=== PATIENT | female | born 1945 | race Caucasian/White ===

== ENCOUNTER 2017-10-22 09:59 | Inpatient (IN) ==
[2017-10-22] MEDS ORDERED: ENOXAPARIN 100 MG/ML SYRINGE SUBCUT STA (10:22)
[2017-10-22] MEDS ORDERED: HEPARIN/NACL 0.9% 2 UNITS/ML 1,000 ML IV ONE (10:22)
[2017-10-22] MEDS ORDERED: ASPIRIN 325 MG TABLET PO STA (10:22)
[2017-10-22] MEDS ORDERED: fentaNYL 100 MCG/2 ML VIAL ONE (10:24)
[2017-10-22] MEDS ORDERED: MIDAZOLAM 2 MG/2 ML VIAL ONE (10:24)
[2017-10-22] MEDS ORDERED: LIDOCAINE 1% 20 ML VIAL ONE (10:24)
[2017-10-22] MEDS ORDERED: METOPROLOL TARTRATE 5 MG/5 ML VIAL IV ONE ×2 (10:25→10:28)
[2017-10-22] MEDS ORDERED: VERAPAMIL 5 MG/2 ML VIAL ONE (10:26)
[2017-10-22] MEDS ORDERED: NITROGLYCERIN DRIP 50 MG/250 ML BOTTLE IV ONE (10:26)
[2017-10-22] MEDS ORDERED: NITROGLYCERIN 2% OINT 1 INCH/GM PACK TOP ONE (10:27)
[2017-10-22] MEDS: NITROGLYCERIN 2% OINT 1 INCH/GM PACK TOP SCH ×2 (10:28→23:59)
[2017-10-22] MEDS ORDERED: HEPARIN/NACL 0.9% 2 UNITS/ML 500 ML IV ONE (10:30)
[2017-10-22 10:37] LABS: Basophils % 0.5 % (0.0-0.8); Eosinophils # 0.1 10*3/uL (0.0-0.87); Eosinophils % 1.4 % (0.00-10.9); Hematocrit 41.3 VOL% (35.7-47.0); Hemoglobin 14.3 GM/DL (12.0-16.0); Immature Granulocytes % 0.2 %; Immature Granulocytes Absolute 0.01 #; Lymphocytes # 1.7 10*3/uL (1.4-4.0); Lymphocytes % 30.7 % (21.3-54.2); Mean Corpuscular HGB Conc 34.6 GM/DL (32-36); Mean Corpuscular Hemoglobin 30 PG (27-34); Mean Corpuscular Volume 86.8 FL (87-102); Monocytes # 0.5 10*3/uL (0.11-0.8); Neutrophils # 3.3 10*3/uL (1.4-7.4); Neutrophils % 58.2 % (38.7-73.9); Platelet Count 255 T/CUMM (130-400); Red Blood Count 4.76 MC/CUMM (3.8-5.5); Red Cell Distribution Width 12.2 % (9.3-17.3); White Blood Count 5.7 T/CUMM (4-12)
[2017-10-22 10:58] LABS: Alanine Aminotransferase 29 U/L (13-56); Alkaline Phosphatase 161 U/L (45-117); Aspartate Amino Transferase 19 U/L (0-37); Bilirubin,Total < 0.39 MG/DL (0.2-1.0); Blood Urea Nitrogen 6 MG/DL (7-18); Calcium 9.1 MG/DL (8.5-10.1); Glucose 105 MG/DL (74-106); Osmolality,Calculated 280.1 MOS/KG (273-304); Potassium 3.4 MMOL/L (3.5-5.1); Sodium 142 MMOL/L (136-145); Total Protein 7.6 G/DL (6.4-8.3); Troponin I Only 0.019 NG/ML (0.00-0.045)
[2017-10-22] MEDS ORDERED: ZALEPLON 5 MG CAPSULE PO PRN (11:18)
[2017-10-22] MEDS ORDERED: MAGNESIUM SULF RIDER 4 GM in PREMIX 1 EACH IV PRN (11:18)
[2017-10-22] MEDS ORDERED: POTASSIUM CHLORIDE 20 MEQ TABLET PO PRN (11:18)
[2017-10-22] MEDS ORDERED: MAGNESIUM SULF RIDER 2 GM in PREMIX 1 EACH IV PRN (11:18)
[2017-10-22] MEDS ORDERED: ONDANSETRON 4 MG/2 ML VIAL IV PRN (11:18)
[2017-10-22] MEDS ORDERED: diphenhydrAMINE CAP 25 MG CAPSULE PO PRN (11:18)
[2017-10-22] MEDS ORDERED: DOCUSATE SODIUM 100 MG CAPSULE PO PRN (11:18)
[2017-10-22 11:42] LABS: PT Patient Result 10.4 SECS; Partial Thromboplastin Time 27.1 SECS (0-40)
[2017-10-22] MEDS: HEPARIN DRIP 25,000 UNITS/500 ML PREMIX IV SCH (12:28)
[2017-10-22] MEDS ORDERED: SODIUM CHLORIDE 0.9% 1,000 ML IV SCH (13:00)
[2017-10-22 13:02] LABS: Alanine Aminotransferase 26 U/L (13-56); Alkaline Phosphatase 160 U/L (45-117); Aspartate Amino Transferase 20 U/L (0-37); Bilirubin,Total < 0.39 MG/DL (0.2-1.0); Blood Urea Nitrogen 6 MG/DL (7-18); Calcium 8.6 MG/DL (8.5-10.1); Glucose 118 MG/DL (74-106); Osmolality,Calculated 279.3 MOS/KG (273-304); Potassium 4.1 MMOL/L (3.5-5.1); Sodium 141 MMOL/L (136-145); Total Protein 7.4 G/DL (6.4-8.3)
[2017-10-22] MEDS: PANTOPRAZOLE 40 MG TABLET PO SCH (13:25)
[2017-10-22 15:56] LABS: Apearance,Urine CLEAR (Clear); Bilirubin,Urine Negative (Negative); Blood, Urine Small mg/dL (Negative); Glucose,Urine (UA) Negative (Negative); Ketones,Urine Negative (Negative); Mucus,Urine Occasional /LPF (Occasional); Nitrite,Urine Negative (Negative); Protein,Urine Negative; RBC,Urine 1 /HPF (0-4); Urine Color Straw (Yellow); Urine Specific Gravity 1.019 (1.001-1.035); Urine Urobilinogen < 2.0 EU/DL (0.2-1.0); WBC,Urine <1 /HPF (0-6)
[2017-10-22] MEDS: CHLORHEXIDINE 4% SOLN 118 ML BOTTLE TOP SCH ×2 (16:00→23:05)
[2017-10-22] MEDS ORDERED: ROSUVASTATIN 20 MG TABLET PO SCH (21:00)
[2017-10-22] MEDS: METOPROLOL TARTRATE 25 MG TABLET PO SCH (21:06)
[2017-10-22] MEDS: CHLORHEXIDINE 0.12% ORAL RINSE 60 ML BOTTLE SWISH/SPIT SCH (21:10)
[2017-10-22] MEDS ORDERED: SIMETHICONE CHEW 80 MG TABLET PO PRN (23:42)
[2017-10-23 02:51] LABS: Alanine Aminotransferase 27 U/L (13-56); Albumin 2.8 G/DL (3.4-5.0); Alkaline Phosphatase 145 U/L (45-117); Aspartate Amino Transferase 23 U/L (0-37); Bilirubin,Total < 0.39 MG/DL (0.2-1.0); Blood Urea Nitrogen 8 MG/DL (7-18); Calcium 8.5 MG/DL (8.5-10.1); Cholesterol 256 MG/DL (50-200); Glucose 117 MG/DL (74-106); HDL Cholesterol 84 MG/DL (40-60); Osmolality,Calculated 275.5 MOS/KG (273-304); Potassium 4.1 MMOL/L (3.5-5.1); Risk Ratio 3.05; Sodium 139 MMOL/L (136-145); Total Protein 6.7 G/DL (6.4-8.3); Triglycerides 61 MG/DL (2-150); VLDL CHOLESTEROL 12.2 MG/DL
[2017-10-23] MEDS: CHLORHEXIDINE 4% SOLN 118 ML BOTTLE TOP SCH ×2 (05:00→10:50)
[2017-10-23 05:14] LABS: Basophils % 0.4 % (0.0-0.8); Eosinophils % 0.4 % (0.00-10.9); Hematocrit 41.6 VOL% (35.7-47.0); Hemoglobin 13.1 GM/DL (12.0-16.0); Immature Granulocytes % 0.2 %; Immature Granulocytes Absolute 0.01 #; Lymphocytes # 1.3 10*3/uL (1.4-4.0); Lymphocytes % 23.7 % (21.3-54.2); Mean Corpuscular HGB Conc 31.5 GM/DL (32-36); Mean Corpuscular Hemoglobin 30 PG (27-34); Mean Corpuscular Volume 95.4 FL (87-102); Mean Platelet Volume 10.2 FL (9.6-12.0); Monocytes # 0.5 10*3/uL (0.11-0.8); Monocytes % 8.7 % (1.7-12.7); Neutrophils # 3.5 10*3/uL (1.4-7.4); Neutrophils % 66.6 % (38.7-73.9); Platelet Count 180 T/CUMM (130-400); Red Blood Count 4.36 MC/CUMM (3.8-5.5); Red Cell Distribution Width 12.6 % (9.3-17.3); White Blood Count 5.3 T/CUMM (4-12)
[2017-10-23] MEDS ORDERED: PAPAVERINE 60 MG/2 ML VIAL ONE (05:20)
[2017-10-23] MEDS ORDERED: TISSUE ADHESIVE 1 EACH APPLICATOR TOP ONE (05:20)
[2017-10-23] MEDS ORDERED: VANCOMYCIN 1,000 MG VIAL ONE (05:20)
[2017-10-23] MEDS ORDERED: MIDAZOLAM 10 MG/2 ML VIAL ONE (05:23)
[2017-10-23] MEDS ORDERED: TRANEXAMIC ACID 1,000 MG/10 ML VIAL ONE (05:23)
[2017-10-23] MEDS ORDERED: SUFentanil 250 MCG/5 ML AMP ONE (05:23)
[2017-10-23] MEDS ORDERED: LORazepam 1 MG TABLET PO ONE (06:00)
[2017-10-23] MEDS ORDERED: CEFUROXIME INJ 1,500 MG in SYRINGE 1 EACH IV ONE (06:00)
[2017-10-23] MEDS ORDERED: PANTOPRAZOLE 40 MG TABLET PO ONE (06:00)
[2017-10-23] MEDS: METOPROLOL TARTRATE 25 MG TABLET PO SCH ×2 (06:02→10:51)
[2017-10-23] MEDS ORDERED: NITROGLYCERIN SL 0.4 MG TABLET SL ONE ×3 (06:41→06:46)
[2017-10-23] MEDS: CHLORHEXIDINE 0.12% ORAL RINSE 60 ML BOTTLE SWISH/SPIT SCH ×3 (06:45→20:25)
[2017-10-23] MEDS: NITROGLYCERIN 2% OINT 1 INCH/GM PACK TOP SCH ×2 (06:59→10:52)
[2017-10-23 07:48] LABS: ABG Base Excess -0.7 MMOL/L (-2.5-2.5); ABG HCO3 23.9 MMOL/L (20-26); ABG Oxygen Saturation 99.8 % (95-100); ABG PCO2 36.3 MM HG (35-48); ABG PH 7.418 (7.35-7.45); ABG TCO2 20.8 MMOL/L (23-27); Glucose Heart Surgery 107 MG/DL (74-106); Hematocrit Heart Surgery 35.5 PERCENT (37-47); Hemoglobin Heart Surgery 11.5 G/DL (12.0-16.0); Ionized Calcium Arterial 1.16 MMOL/L (1.21-1.46); PCO2 Patient Temp Arterial 36.3 MMHG; PH Patient Temp Arterial 7.418; Patient Temperature 37 CELCIUS; Potassium Heart/CVR 3.2 MMOL/L (3.5-5.1); Sodium Heart/CVR 142 MMOL/L (135-145)
[2017-10-23] MEDS ORDERED: HEPARIN/NACL 0.9% 2 UNITS/ML 500 ML IV ONE (09:37)
[2017-10-23 09:43] LABS: PCO2 Patient Temp Venous 28.9 MM HG; PH Patient Temp Venous 7.514; PO2 Patient Temp Venous 37.4 MM HG; Potassium Heart/CVR 3.6 MMOL/L (3.5-5.1); VBG Base Excess 0.7 MEQ/L (0-4); VBG HCO3 24.9 MEQ/L (24-28); VBG Oxygen Saturation 84.3 %; VBG PCO2 31.8 MMHG (41-51); VBG PH 7.483
[2017-10-23 10:12] LABS: Hematocrit Heart Surgery 23.1 PERCENT (37-47); Hemoglobin Heart Surgery 7.4 G/DL (12.0-16.0); PCO2 Patient Temp Venous 29.7 MM HG; PH Patient Temp Venous 7.54; PO2 Patient Temp Venous 43.3 MM HG; Potassium Heart/CVR 3.6 MMOL/L (3.5-5.1); VBG Base Excess 3.2 MEQ/L (0-4); VBG HCO3 27.2 MEQ/L (24-28); VBG PCO2 32.8 MMHG (41-51); VBG PH 7.51; VBG PO2 49.6 MMHG (17-40)
[2017-10-23 10:34] LABS: Hematocrit Heart Surgery 25.3 PERCENT (37-47); Hemoglobin Heart Surgery 8.1 G/DL (12.0-16.0); PCO2 Patient Temp Venous 31.8 MM HG; PH Patient Temp Venous 7.489; PO2 Patient Temp Venous 35.1 MM HG; Potassium Heart/CVR 3.8 MMOL/L (3.5-5.1); VBG Base Excess 1.2 MEQ/L (0-4); VBG HCO3 25.3 MEQ/L (24-28); VBG Oxygen Saturation 80.8 %; VBG PH 7.459; VBG PO2 40.3 MMHG (17-40)
[2017-10-23] MEDS: PANTOPRAZOLE 40 MG TABLET PO SCH (10:51)
[2017-10-23 11:25] LABS: ABG Base Excess -1.2 MMOL/L (-2.5-2.5); ABG HCO3 23.4 MMOL/L (20-26); ABG Oxygen Saturation 97.5 % (95-100); ABG PCO2 40.8 MM HG (35-48); ABG PH 7.376 (7.35-7.45); ABG PO2 94.3 MM HG (80-95); Glucose Heart Surgery 220 MG/DL (74-106); Hematocrit Heart Surgery 28.8 PERCENT (37-47); Hemoglobin Heart Surgery 9.3 G/DL (12.0-16.0); Ionized Calcium Arterial 1.18 MMOL/L (1.21-1.46); PCO2 Patient Temp Arterial 40.8 MMHG; PH Patient Temp Arterial 7.376; PO2 Patient Temp Arterial 94.3 MM HG; Patient Temperature 37 CELCIUS; Sodium Heart/CVR 138 MMOL/L (135-145)
[2017-10-23] MEDS ORDERED: PROTAMINE SULFATE 250 MG/25 ML VIAL IV ONE ×2 (11:37→12:22)
[2017-10-23] MEDS ORDERED: MAGNESIUM SULFATE 1 GM/2 ML VIAL ONE (11:37)
[2017-10-23] MEDS ORDERED: LIDOCAINE 1% 5 ML VIAL ONE (11:37)
[2017-10-23] MEDS ORDERED: DEXTROSE 5% KCL 20 MEQ 40 MEQ/2,000 ML BAG IV ONE (11:37)
[2017-10-23] MEDS ORDERED: SODIUM BICARBONATE 50 MEQ/50 ML SYRINGE IV ONE (11:37)
[2017-10-23] MEDS ORDERED: FUROSEMIDE 20 MG/2 ML VIAL ONE (11:38)
[2017-10-23] MEDS ORDERED: ALBUMIN 5% 12.5 GM/250 ML VIAL IV ONE ×2 (11:38→12:46)
[2017-10-23] MEDS ORDERED: methylPREDNISolone SOD SUC 1,000 MG/8 ML VIAL ONE (11:38)
[2017-10-23] MEDS ORDERED: PROTAMINE SULFATE 50 MG/5 ML VIAL IV ONE (11:38)
[2017-10-23] MEDS ORDERED: HEPARIN 10,000 UNIT/10 ML VIAL ONE (11:38)
[2017-10-23] MEDS ORDERED: MANNITOL 12.5 GM/50 ML VIAL IV ONE (11:38)
[2017-10-23] MEDS ORDERED: PHENYLEPHRINE DRIP 40 MG/250 ML PREMIX IV ONE (11:49)
[2017-10-23] MEDS ORDERED: NITROPRUSSIDE 50 MG/2 ML VIAL ONE (12:13)
[2017-10-23] MEDS ORDERED: THROMBIN TOPICAL (RECOMBINANT) 5,000 UNIT VIAL TOP ONE (12:19)
[2017-10-23] MEDS ORDERED: METOPROLOL TARTRATE 5 MG/5 ML VIAL IV ONE ×3 (12:20→13:29)
[2017-10-23] MEDS ORDERED: SEVOFLURANE 1 UNIT/15 MINUTE INH ONE (12:22)
[2017-10-23] MEDS ORDERED: ePHEDrine 50 MG/ML AMP ONE (12:22)
[2017-10-23] MEDS ORDERED: VECURONIUM 10 MG VIAL IV ONE (12:22)
[2017-10-23] MEDS ORDERED: CALCIUM CHLORIDE 1,000 MG/10 ML VIAL IV ONE (12:22)
[2017-10-23] MEDS ORDERED: PHENYLEPHRINE 10 MG/1 ML VIAL IV ONE (12:23)
[2017-10-23] MEDS ORDERED: LACTATED RINGERS 1,000 ML IV ONE (12:23)
[2017-10-23] MEDS ORDERED: ETOMIDATE 40 MG/20 ML VIAL IV ONE (12:23)
[2017-10-23] MEDS ORDERED: SODIUM CHLORIDE 0.9% 1,000 ML IV ONE (12:23)
[2017-10-23] MEDS ORDERED: MIDAZOLAM 2 MG/2 ML VIAL IV PRN (12:38)
[2017-10-23] MEDS ORDERED: SODIUM CHLORIDE 0.9% 250 ML IV PRN (12:38)
[2017-10-23] MEDS ORDERED: CHLORHEXIDINE 4% SOLN 118 ML BOTTLE TOP PRN (12:38)
[2017-10-23] MEDS ORDERED: MORPHINE 10 MG/1 ML VIAL IV PRN (12:38)
[2017-10-23] MEDS ORDERED: MAGNESIUM SULF RIDER 4 GM in PREMIX 1 EACH IV SCH (12:38)
[2017-10-23] MEDS ORDERED: INSULIN REGULAR 100 UNIT/ML IV PRN (12:38)
[2017-10-23] MEDS ORDERED: DEXTROSE 50% 25 GM/50 ML VIAL IV PRN ×2 (12:38)
[2017-10-23] MEDS ORDERED: ACETAMINOPHEN 650 MG SUPP RECTAL PRN (12:38)
[2017-10-23] MEDS ORDERED: CALCIUM CHLORIDE 1,000 MG/10 ML SYRINGE IV PRN (12:38)
[2017-10-23] MEDS ORDERED: POTASSIUM CHLORIDE RIDER 10 MEQ in PREMIX 1 EACH IV PRN (12:38)
[2017-10-23] MEDS ORDERED: ONDANSETRON 4 MG/2 ML VIAL IV PRN (12:38)
[2017-10-23 12:57] LABS: ABG Base Excess -0.6 MMOL/L (-2.5-2.5); ABG Oxygen Saturation 98.9 % (95-100); ABG PCO2 35.9 MM HG (35-48); ABG PH 7.423 (7.35-7.45); ABG TCO2 20.9 MMOL/L (23-27); Glucose Heart Surgery 141 MG/DL (74-106); Hematocrit Heart Surgery 34.9 PERCENT (37-47); Hemoglobin Heart Surgery 11.3 G/DL (12.0-16.0); Potassium Heart/CVR 3.1 MMOL/L (3.5-5.1)
[2017-10-23] MEDS ORDERED: NITROPRUSSIDE 100 MG in DEXTROSE 5% 246 ML IV PRN (13:10)
[2017-10-23] MEDS: SODIUM CHLORIDE 0.45% 1,000 ML IV SCH ×2 (13:14)
[2017-10-23] MEDS: ALBUMIN 5% 12.5 GM in PREMIX 1 EACH IV PRN ×2 (13:15→13:45)
[2017-10-23 13:16] LABS: INR 1.1; PT Patient Result 11.9 SECS; Partial Thromboplastin Time 28.2 SECS (0-40)
[2017-10-23 13:17] LABS: Blood Urea Nitrogen 7 MG/DL (7-18); Calcium 7.7 MG/DL (8.5-10.1); Glucose 146 MG/DL (74-106); Osmolality,Calculated 281.3 MOS/KG (273-304); Potassium 3.3 MMOL/L (3.5-5.1); Sodium 141 MMOL/L (136-145)
[2017-10-23 13:20] LABS: Lactic Acid 2.3 MMOL/L (0.4-2.0)
[2017-10-23] MEDS: POTASSIUM CHLORIDE RIDER 20 MEQ in PREMIX 1 EACH IV PRN ×4 (13:26→20:57)
[2017-10-23] MEDS ORDERED: ASPIRIN 325 MG TABLET PO ONE (16:00)
[2017-10-23 16:09] LABS: ABG Base Excess 0.5 MMOL/L (-2.5-2.5); ABG HCO3 25.1 MMOL/L (20-26); ABG PCO2 39.9 MM HG (35-48); ABG PH 7.416 (7.35-7.45); ABG PO2 85.2 MM HG (80-95); ABG TCO2 26.3 MMOL/L (23-27); Glucose Heart Surgery 140 MG/DL (74-106); Hemoglobin Heart Surgery 10.4 G/DL (12.0-16.0); Potassium Heart/CVR 3.3 MMOL/L (3.5-5.1)
[2017-10-23 20:05] LABS: ABG Base Excess 0.9 MMOL/L (-2.5-2.5); ABG HCO3 25.6 MMOL/L (20-26); ABG Oxygen Saturation 95.2 % (95-100); ABG PCO2 40.9 MM HG (35-48); ABG PH 7.414 (7.35-7.45); ABG TCO2 26.8 MMOL/L (23-27); Glucose Heart Surgery 150 MG/DL (74-106); Hemoglobin Heart Surgery 10.4 G/DL (12.0-16.0); Potassium Heart/CVR 3.2 MMOL/L (3.5-5.1)
[2017-10-23] MEDS: CEFUROXIME INJ 1,500 MG in SYRINGE 1 EACH IV SCH (20:10)
[2017-10-23] MEDS: PHENobarbital 30 MG TABLET PO SCH (20:47)
[2017-10-23] MEDS: PHENYTOIN ER 100 MG CAPSULE PO SCH (20:48)
[2017-10-23] MEDS ORDERED: ACETAMINOPHEN 325 MG TABLET PO PRN (22:12)
[2017-10-24] MEDS: NITROGLYCERIN 2% OINT 1 INCH/GM PACK TOP SCH (00:12)
[2017-10-24] MEDS: HEPARIN DRIP 25,000 UNITS/500 ML PREMIX IV SCH (00:13)
[2017-10-24 00:25] LABS: Apearance,Urine CLEAR (Clear); Bilirubin,Urine Negative (Negative); Blood, Urine Moderate mg/dL (Negative); Glucose,Urine (UA) Negative (Negative); Ketones,Urine 80 mg/dL (Negative); Mucus,Urine Occasional /LPF (Occasional); Nitrite,Urine Negative (Negative); Protein,Urine Negative; RBC,Urine 15 /HPF (0-4); Urine Color Yellow (Yellow); Urine Specific Gravity 1.015 (1.001-1.035); Urine Urobilinogen < 2.0 EU/DL (0.2-1.0); WBC,Urine 2 /HPF (0-6)
[2017-10-24 03:19] LABS: Basophils % 0.1 % (0.0-0.8); Hematocrit 27.9 VOL% (35.7-47.0); Immature Granulocytes % 0.4 %; Immature Granulocytes Absolute 0.03 #; Lymphocytes # 0.6 10*3/uL (1.4-4.0); Lymphocytes % 8.3 % (21.3-54.2); Mean Corpuscular HGB Conc 34.4 GM/DL (32-36); Mean Corpuscular Hemoglobin 31 PG (27-34); Mean Corpuscular Volume 89.7 FL (87-102); Mean Platelet Volume 10.2 FL (9.6-12.0); Monocytes # 0.7 10*3/uL (0.11-0.8); Monocytes % 9.4 % (1.7-12.7); Neutrophils # 5.9 10*3/uL (1.4-7.4); Neutrophils % 81.8 % (38.7-73.9); Platelet Count 157 T/CUMM (130-400); Red Blood Count 3.11 MC/CUMM (3.8-5.5); Red Cell Distribution Width 13.3 % (9.3-17.3); White Blood Count 7.2 T/CUMM (4-12)
[2017-10-24 03:20] LABS: Hemoglobin 9.6 GM/DL (12.0-16.0)
[2017-10-24] MEDS: MORPHINE 4 MG/1 ML VIAL IV PRN ×2 (03:38→12:17)
[2017-10-24] MEDS: SODIUM CHLORIDE 0.45% 1,000 ML IV SCH ×2 (03:55→08:46)
[2017-10-24 04:28] LABS: Calcium 7.5 MG/DL (8.5-10.1); Osmolality,Calculated 279.3 MOS/KG (273-304); Potassium 3.9 MMOL/L (3.5-5.1)
[2017-10-24] MEDS: POTASSIUM CHLORIDE RIDER 20 MEQ in PREMIX 1 EACH IV PRN (04:47)
[2017-10-24] MEDS: MAGNESIUM SULF RIDER 2 GM in PREMIX 1 EACH IV PRN ×2 (04:49→06:30)
[2017-10-24] MEDS: CEFUROXIME INJ 1,500 MG in SYRINGE 1 EACH IV SCH ×2 (08:15→21:14)
[2017-10-24] MEDS: PANTOPRAZOLE 40 MG VIAL IV SCH (08:18)
[2017-10-24] MEDS: PHENYTOIN ER 100 MG CAPSULE PO SCH ×3 (08:21→21:13)
[2017-10-24] MEDS: ASPIRIN EC 325 MG TABLET PO SCH (08:21)
[2017-10-24] MEDS: PHENobarbital 30 MG TABLET PO SCH ×3 (08:21→21:14)
[2017-10-24] MEDS: FUROSEMIDE 40 MG TABLET PO SCH (08:21)
[2017-10-24] MEDS: CHLORHEXIDINE 0.12% ORAL RINSE 60 ML BOTTLE SWISH/SPIT SCH ×2 (08:22→21:14)
[2017-10-24] MEDS: INSULIN REGULAR 100 UNIT/ML SUBCUT SCH ×4 (08:24→20:45)
[2017-10-24] MEDS: METOPROLOL TARTRATE 25 MG TABLET PO SCH ×2 (09:05→21:13)
[2017-10-24] MEDS ORDERED: ALBUTEROL 2.5 MG/3 ML NEB RESP TX PRN (10:28)
[2017-10-24] MEDS: ATORVASTATIN 40 MG TABLET PO SCH (21:13)
[2017-10-25] MEDS: INSULIN REGULAR 100 UNIT/ML SUBCUT SCH ×6 (01:11→22:57)
[2017-10-25 06:04] LABS: Basophils % 0.2 % (0.0-0.8); Eosinophils % 0.1 % (0.00-10.9); Hematocrit 27.5 VOL% (35.7-47.0); Hemoglobin 9.9 GM/DL (12.0-16.0); Immature Granulocytes % 0.5 %; Immature Granulocytes Absolute 0.04 #; Lymphocytes # 0.7 10*3/uL (1.4-4.0); Lymphocytes % 7.8 % (21.3-54.2); Mean Corpuscular Hemoglobin 31 PG (27-34); Mean Corpuscular Volume 85.9 FL (87-102); Mean Platelet Volume 10.5 FL (9.6-12.0); Monocytes # 0.8 10*3/uL (0.11-0.8); Monocytes % 9.3 % (1.7-12.7); Neutrophils # 7.1 10*3/uL (1.4-7.4); Neutrophils % 82.1 % (38.7-73.9); Platelet Count 149 T/CUMM (130-400); Red Cell Distribution Width 13.2 % (9.3-17.3); White Blood Count 8.6 T/CUMM (4-12)
[2017-10-25 06:38] LABS: Calcium 7.6 MG/DL (8.5-10.1); Calcium 7.7 MG/DL (8.5-10.1); Osmolality,Calculated 270.8 MOS/KG (273-304); Potassium 3.1 MMOL/L (3.5-5.1)
[2017-10-25 06:41] LABS: Hypochromasia Slight; Lymphocytes 9 % (20-55); Platelet Estimate Normal; Segmented Neutrophils 83 % (50-85); Total Cells Counted 100
[2017-10-25] MEDS ORDERED: FUROSEMIDE 40 MG/4 ML VIAL IV ONE (08:52)
[2017-10-25] MEDS: POTASSIUM CHLORIDE RIDER 20 MEQ in PREMIX 1 EACH IV PRN ×2 (09:21→10:36)
[2017-10-25] MEDS: PANTOPRAZOLE 40 MG VIAL IV SCH (09:22)
[2017-10-25] MEDS: ASPIRIN EC 325 MG TABLET PO SCH (09:24)
[2017-10-25] MEDS: METOPROLOL TARTRATE 25 MG TABLET PO SCH ×2 (09:24→21:51)
[2017-10-25] MEDS: FUROSEMIDE 40 MG TABLET PO SCH (09:25)
[2017-10-25] MEDS: PHENobarbital 30 MG TABLET PO SCH ×3 (09:25→21:51)
[2017-10-25] MEDS: PHENYTOIN ER 100 MG CAPSULE PO SCH ×3 (09:25→21:50)
[2017-10-25] MEDS: CHLORHEXIDINE 0.12% ORAL RINSE 60 ML BOTTLE SWISH/SPIT SCH ×2 (09:25→21:51)
[2017-10-25] MEDS: MAGNESIUM SULF RIDER 2 GM in PREMIX 1 EACH IV PRN (11:35)
[2017-10-25] MEDS ORDERED: POTASSIUM CHLORIDE 20 MEQ TABLET PO SCH (13:30)
[2017-10-25] MEDS: ASCORBIC ACID 500 MG TABLET PO SCH ×2 (14:52→21:51)
[2017-10-25] MEDS: ATORVASTATIN 40 MG TABLET PO SCH (21:50)
[2017-10-25] MEDS ORDERED: POTASSIUM CHLORIDE RIDER IV ONE (22:00)
[2017-10-26] MEDS: INSULIN REGULAR 100 UNIT/ML SUBCUT SCH ×6 (02:48→20:43)
[2017-10-26 05:49] LABS: Basophils % 0.4 % (0.0-0.8); Eosinophils # 0.1 10*3/uL (0.0-0.87); Eosinophils % 0.9 % (0.00-10.9); Hematocrit 30.7 VOL% (35.7-47.0); Hemoglobin 10.6 GM/DL (12.0-16.0); Immature Granulocytes % 0.6 %; Immature Granulocytes Absolute 0.05 #; Lymphocytes # 1.2 10*3/uL (1.4-4.0); Lymphocytes % 14.1 % (21.3-54.2); Mean Corpuscular HGB Conc 34.5 GM/DL (32-36); Mean Corpuscular Hemoglobin 30 PG (27-34); Mean Corpuscular Volume 87.7 FL (87-102); Mean Platelet Volume 10.6 FL (9.6-12.0); Monocytes # 0.8 10*3/uL (0.11-0.8); Monocytes % 9.7 % (1.7-12.7); Neutrophils # 6.1 10*3/uL (1.4-7.4); Neutrophils % 74.3 % (38.7-73.9); Platelet Count 179 T/CUMM (130-400); Red Cell Distribution Width 13.2 % (9.3-17.3); White Blood Count 8.2 T/CUMM (4-12)
[2017-10-26 06:19] LABS: Osmolality,Calculated 272.8 MOS/KG (273-304); Potassium 4.4 MMOL/L (3.5-5.1)
[2017-10-26] MEDS: ASCORBIC ACID 500 MG TABLET PO SCH ×2 (08:27→20:37)
[2017-10-26] MEDS: PHENYTOIN ER 100 MG CAPSULE PO SCH ×3 (08:28→20:39)
[2017-10-26] MEDS: METOPROLOL TARTRATE 25 MG TABLET PO SCH ×2 (08:28→20:38)
[2017-10-26] MEDS: FUROSEMIDE 40 MG TABLET PO SCH (08:28)
[2017-10-26] MEDS: PANTOPRAZOLE 40 MG VIAL IV SCH (08:28)
[2017-10-26] MEDS: ASPIRIN EC 325 MG TABLET PO SCH (08:28)
[2017-10-26] MEDS: POTASSIUM CHLORIDE 20 MEQ TABLET PO SCH ×2 (08:30→20:38)
[2017-10-26] MEDS ORDERED: BISACODYL 5 MG TABLET PO PRN (09:24)
[2017-10-26] MEDS ORDERED: DOCUSATE SODIUM 100 MG CAPSULE PO PRN (09:25)
[2017-10-26] MEDS: CHLORHEXIDINE 0.12% ORAL RINSE 60 ML BOTTLE SWISH/SPIT SCH ×2 (09:35→21:22)
[2017-10-26] MEDS: PHENobarbital 30 MG TABLET PO SCH ×3 (09:35→20:39)
[2017-10-26] MEDS: ATORVASTATIN 40 MG TABLET PO SCH (20:39)
[2017-10-27] MEDS: INSULIN REGULAR 100 UNIT/ML SUBCUT SCH ×6 (01:25→20:30)
[2017-10-27 06:12] LABS: Basophils # 0.1 10*3/uL (0.0-0.2); Basophils % 0.7 % (0.0-0.8); Eosinophils # 0.3 10*3/uL (0.0-0.87); Eosinophils % 3.6 % (0.00-10.9); Hematocrit 32.1 VOL% (35.7-47.0); Immature Granulocytes % 0.6 %; Immature Granulocytes Absolute 0.05 #; Lymphocytes # 1.7 10*3/uL (1.4-4.0); Lymphocytes % 20.8 % (21.3-54.2); Mean Corpuscular HGB Conc 34.3 GM/DL (32-36); Mean Corpuscular Hemoglobin 31 PG (27-34); Mean Corpuscular Volume 89.7 FL (87-102); Mean Platelet Volume 10.3 FL (9.6-12.0); Monocytes # 0.8 10*3/uL (0.11-0.8); Monocytes % 9.9 % (1.7-12.7); Neutrophils # 5.4 10*3/uL (1.4-7.4); Neutrophils % 64.4 % (38.7-73.9); Platelet Count 280 T/CUMM (130-400); Red Blood Count 3.58 MC/CUMM (3.8-5.5); Red Cell Distribution Width 13.3 % (9.3-17.3); White Blood Count 8.4 T/CUMM (4-12)
[2017-10-27 06:48] LABS: Calcium 8.3 MG/DL (8.5-10.1); Osmolality,Calculated 274.7 MOS/KG (273-304); Potassium 4.2 MMOL/L (3.5-5.1)
[2017-10-27] MEDS ORDERED: DIGOXIN 0.5 MG/2 ML AMP IV ONE (08:03)
[2017-10-27] MEDS: ASCORBIC ACID 500 MG TABLET PO SCH ×2 (09:41→20:50)
[2017-10-27] MEDS: FUROSEMIDE 40 MG TABLET PO SCH (09:41)
[2017-10-27] MEDS: ASPIRIN EC 325 MG TABLET PO SCH (09:41)
[2017-10-27] MEDS: PHENobarbital 30 MG TABLET PO SCH ×3 (09:41→20:50)
[2017-10-27] MEDS: POTASSIUM CHLORIDE 20 MEQ TABLET PO SCH ×2 (09:41→20:50)
[2017-10-27] MEDS: METOPROLOL TARTRATE 25 MG TABLET PO SCH ×2 (09:41→20:50)
[2017-10-27] MEDS: PHENYTOIN ER 100 MG CAPSULE PO SCH ×3 (09:41→20:50)
[2017-10-27] MEDS: CHLORHEXIDINE 0.12% ORAL RINSE 60 ML BOTTLE SWISH/SPIT SCH ×2 (09:44→20:51)
[2017-10-27] MEDS: PANTOPRAZOLE 40 MG VIAL IV SCH (09:44)
[2017-10-27] MEDS: ATORVASTATIN 40 MG TABLET PO SCH (20:50)
[2017-10-28] MEDS: INSULIN REGULAR 100 UNIT/ML SUBCUT SCH ×6 (03:17→23:58)
[2017-10-28 04:59] LABS: Basophils # 0.1 10*3/uL (0.0-0.2); Basophils % 0.8 % (0.0-0.8); Eosinophils # 0.3 10*3/uL (0.0-0.87); Hematocrit 28.6 VOL% (35.7-47.0); Hemoglobin 10.2 GM/DL (12.0-16.0); Immature Granulocytes % 0.5 %; Immature Granulocytes Absolute 0.03 #; Lymphocytes # 1.4 10*3/uL (1.4-4.0); Lymphocytes % 21.8 % (21.3-54.2); Mean Corpuscular HGB Conc 35.7 GM/DL (32-36); Mean Corpuscular Hemoglobin 31 PG (27-34); Mean Corpuscular Volume 87.7 FL (87-102); Mean Platelet Volume 9.9 FL (9.6-12.0); Monocytes # 0.6 10*3/uL (0.11-0.8); Monocytes % 9.5 % (1.7-12.7); Neutrophils # 4.1 10*3/uL (1.4-7.4); Neutrophils % 62.4 % (38.7-73.9); Platelet Count 262 T/CUMM (130-400); Red Blood Count 3.26 MC/CUMM (3.8-5.5); Red Cell Distribution Width 13.4 % (9.3-17.3); White Blood Count 6.6 T/CUMM (4-12)
[2017-10-28 05:26] LABS: Calcium 8.2 MG/DL (8.5-10.1); Osmolality,Calculated 271.8 MOS/KG (273-304)
[2017-10-28] MEDS: ASPIRIN EC 325 MG TABLET PO SCH (09:39)
[2017-10-28] MEDS: METOPROLOL TARTRATE 25 MG TABLET PO SCH (09:39)
[2017-10-28] MEDS: FUROSEMIDE 40 MG TABLET PO SCH (09:39)
[2017-10-28] MEDS: PHENYTOIN ER 100 MG CAPSULE PO SCH ×3 (09:39→22:24)
[2017-10-28] MEDS: POTASSIUM CHLORIDE 20 MEQ TABLET PO SCH ×2 (09:39→22:24)
[2017-10-28] MEDS: PHENobarbital 30 MG TABLET PO SCH ×3 (09:39→22:33)
[2017-10-28] MEDS: ASCORBIC ACID 500 MG TABLET PO SCH ×2 (09:39→22:24)
[2017-10-28] MEDS: PANTOPRAZOLE 40 MG VIAL IV SCH (09:39)
[2017-10-28] MEDS: CHLORHEXIDINE 0.12% ORAL RINSE 60 ML BOTTLE SWISH/SPIT SCH ×2 (09:40→22:25)
[2017-10-28] MEDS: METOPROLOL TARTRATE 5 MG/5 ML VIAL IV SCH ×2 (11:28→13:11)
[2017-10-28] MEDS ORDERED: LACTATED RINGERS 500 ML IV ONE (12:11)
[2017-10-28] MEDS ORDERED: FUROSEMIDE 20 MG TABLET PO SCH (12:12)
[2017-10-28] MEDS: ATORVASTATIN 40 MG TABLET PO SCH (22:24)
[2017-10-28] MEDS: METOPROLOL TARTRATE 50 MG TABLET PO SCH (22:24)
[2017-10-29 05:27] LABS: Basophils % 0.5 % (0.0-0.8); Eosinophils # 0.4 10*3/uL (0.0-0.87); Eosinophils % 5.7 % (0.00-10.9); Hematocrit 30.3 VOL% (35.7-47.0); Hemoglobin 10.3 GM/DL (12.0-16.0); Immature Granulocytes % 0.4 %; Immature Granulocytes Absolute 0.03 #; Lymphocytes # 1.2 10*3/uL (1.4-4.0); Lymphocytes % 15.5 % (21.3-54.2); Mean Corpuscular Hemoglobin 30 PG (27-34); Mean Corpuscular Volume 89.1 FL (87-102); Mean Platelet Volume 9.8 FL (9.6-12.0); Monocytes # 0.8 10*3/uL (0.11-0.8); Monocytes % 9.7 % (1.7-12.7); Neutrophils # 5.3 10*3/uL (1.4-7.4); Neutrophils % 68.2 % (38.7-73.9); Platelet Count 308 T/CUMM (130-400); Red Cell Distribution Width 13.4 % (9.3-17.3); White Blood Count 7.7 T/CUMM (4-12)
[2017-10-29 05:43] LABS: Calcium 8.2 MG/DL (8.5-10.1); Osmolality,Calculated 274.7 MOS/KG (273-304); Potassium 3.9 MMOL/L (3.5-5.1)
[2017-10-29] MEDS: INSULIN REGULAR 100 UNIT/ML SUBCUT SCH ×4 (07:05→12:18)
[2017-10-29] MEDS: PHENYTOIN ER 100 MG CAPSULE PO SCH ×2 (10:14→14:57)
[2017-10-29] MEDS: METOPROLOL TARTRATE 50 MG TABLET PO SCH (10:14)
[2017-10-29] MEDS: ASCORBIC ACID 500 MG TABLET PO SCH (10:14)
[2017-10-29] MEDS: ASPIRIN EC 325 MG TABLET PO SCH (10:14)
[2017-10-29] MEDS: POTASSIUM CHLORIDE 20 MEQ TABLET PO SCH (10:14)
[2017-10-29] MEDS: PHENobarbital 30 MG TABLET PO SCH ×2 (10:15→14:56)
[2017-10-29] MEDS: CHLORHEXIDINE 0.12% ORAL RINSE 60 ML BOTTLE SWISH/SPIT SCH (10:16)
[2017-10-29 12:31] VITALS: BP 103/65
== END 2017-10-29 15:37 | DRG 234 ==
LOC: EDUNIT# → EDBD → N.EDINP 09:59 → N.ED 09:59 → N.ICU 10:33 → N.CVR 10-23 07:35 → N.TELES 10-24 09:16
PROVIDERS: ADMIT Internal Medicine Cardiovascular Disease; ATTEND Internal Medicine Cardiovascular Disease
PROC: CLCCHCL (ICD-10-PCS; 2017-10-22 11:45)